=== PATIENT | female | born 1950 | race Caucasian/White ===

== ENCOUNTER → 2018-07-21 13:10 | Outpatient (CLI) | payer MEDICARE, BC ==
[2018-07-21 15:00] LABS: BASOPHILS 0.2 % (0-2); EOSINOPHILS 0.6 % (0-7); HEMATOCRIT 40.8 % (36.0-48.0); HEMOGLOBIN 13.4 g/dL (12-16); IMMATURE GRANULOCYTES 0.2 % (0-5); LYMPHOCYTES 23.7 % (15-50); MCH 30.8 pg (26.0-34.0); MCHC 32.8 g/dL (31.0-37.0); MCV 93.8 fL (80.0-100.0); MEAN PLATELET VOLUME 10.1 fL (7.4-10.4); MONOCYTES 5.5 % (2-11); NEUTROPHILS 69.8 % (40-80); PLATELET COUNT 312 10x3/uL (130-400); RBC 4.35 10x6/uL (4.00-5.40); RDW 13.6 % (11.5-14.5); WBC 17.4 10x3/uL (4.8-10.8)
== END | disposition home or self-care (01) ==
LOC: D.RT 06-01 13:00 → D.LAB 06-01 13:45 → D.CT 06-01 14:00 → D.RT 06-05 08:00 → D.LAB 06-05 08:00 → D.CT 06-05 08:45 → D.LAB 13:00
PROVIDERS: ATTEND Internal Medicine Pulmonary Disease
DX: M06.9 Rheumatoid arthritis, unspecified (principal)

== ENCOUNTER → 2018-07-29 19:52 | Outpatient (CLI) | payer MEDICARE, BC ==
[2018-07-31 12:11] LABS: ANA REFLEX - DIRECT Negative (Negative)
== END | disposition home or self-care (01) ==
LOC: D.LABREF 19:52
PROVIDERS: ATTEND Internal Medicine Pulmonary Disease
DX: M06.9 Rheumatoid arthritis, unspecified (principal)

== ENCOUNTER → 2018-12-17 09:26 | Outpatient (CLI) | payer MEDICARE, BC | END | disposition home or self-care (01) | LOC: D.RT 11-26 11:00 → D.CT 11-26 11:45 | PROVIDERS: ATTEND Internal Medicine Pulmonary Disease | DX: R94.2 Abnormal results of pulmonary function studies (principal) ==